=== PATIENT | male | born 1980 | race Two or more races ===

== ENCOUNTER 2017-05-08 21:22 | Emergency (ER) | payer OTHER ==
[~2017-05-08] VITALS: Ht 180.3 cm; Wt 108.9 kg
[2017-05-09] MEDS ORDERED: MORPHINE SULFATE 4 MG/ML SYRG IV ONE
[2017-05-09] MEDS ORDERED: TETANUS-DIPTH-ACEL PERTUSSIS 0.5ML SYRG IM ONE
[2017-05-09] MEDS ORDERED: ONDANSETRON HCL 4 MG/2 ML VIAL IV ONE
[2017-05-09] MEDS ORDERED: HYDROmorphone HCL 2 MG/ML VL IV ONE (01:15)
[2017-05-09] MEDS ORDERED: ONDANSETRON HCL 4 MG/2 ML VIAL ONE (02:01)
[2017-05-09 02:55] VITALS: BP 131/73
== END 2017-05-09 03:28 | disposition short-term general hospital (02) ==
LOC: ER 21:26
DX: S43.102A Unspecified dislocation of left acromioclavicular joint, initial encounter (principal); S12.401A Unspecified nondisplaced fracture of fifth cervical vertebra, initial encounter for closed fracture; S12.600A Unspecified displaced fracture of seventh cervical vertebra, initial encounter for closed fracture; S80.212A Abrasion, left knee, initial encounter; R51 Headache; Z23 Encounter for immunization; V49.9XXA Car occupant (driver) (passenger) injured in unspecified traffic accident, initial encounter; Y93.89 Activity, other specified; Y99.8 Other external cause status; Y92.89 Other specified places as the place of occurrence of the external cause
CPT/HCPCS: 29105; 70450; 71250; 72125; 73020; 96374; 96375; 99285; J1170; J2270; J2405; L0120; 90715